=== PATIENT | male | born 1980 | race Caucasian/White ===

== ENCOUNTER 2017-05-27 03:47 | Emergency (ER) | payer MEDICAID, OTHER ==
[~2017-05-27] VITALS: Ht 172.7 cm; Wt 74.0 kg
[2017-05-27 03:50] VITALS: Ht 172.7 cm; Wt 74.0 kg
[2017-05-27] MEDS ORDERED: LIDOCAINE 2% VISC 15 ML CUP PO ONE (04:30)
--- NOTE | 2017-05-27 04:39 | ERD ---
ER Documentation Chief Complaint Date/Time DATE: 05/27/17 TIME: 04:30 Chief Complaint mouth pain when gurgled "skin astringent" 20cc did not swallow spit out HPI 36-year-old male presents here in emergency department for complaints of mouth pain after accidentally gargling with the skin astringent/cleanser tonight. Patient was able to ingest very small amount. Patient is complaining of pain and burning pain 4/10 scale, not better or worse with anything. Patient denies any shortness of breath or stridor. Patient denies any chest pain. Patient denies any abdominal pain. ROS All systems reviewed and are negative except as per history of present illness. Medications Home Meds Reported Medications [none] Unknown Strength No Conflict Check 05/27/17 Allergies Allergies: Coded Allergies: No Known Allergy (Unverified , 05/27/17) PMhx/Soc Medical and Surgical Hx: pt denies Medical Hx, pt denies Surgical Hx Hx Alcohol Use: No Hx Substance Use: No Hx Tobacco Use: Yes Smoking Status: Current every day smoker FmHx Family History: No coronary disease, No diabetes, No other Physical Exam Vitals Vital Signs Date Time Temp Pulse Resp B/P Pulse Ox O2 Delivery O2 Flow Rate FiO2 05/27/17 03:50 97.8 87 20 133/83 98 Physical Exam GENERAL: The patient is well developed and appropriate for usual state of health, in no apparent distress. HEENT: Atraumatic. Ears: Normal tympanic membrane, no erythema or bulging. No ear canal swelling. No ear discharge. Nose: normal nasal turbinates, no erythema or swelling. Normal nasal discharge. Throat: oropharynx erythematous. No tonsillar swelling or tonsillar exudates. No lymphadenopathy. CHEST: Clear to auscultation bilaterally. There are no rales, wheezes or rhonchi. HEART: Regular rate and rhythm. No murmurs, clicks, rubs or gallops. No S3 or S4. ABDOMEN: Soft, nontender and nondistended. Good bowel sounds. No rebound or guarding. No gross peritonitis. No gross organomegaly or masses. No White sign or McBurney point tenderness. BACK: No midline or flank tenderness. EXTREMITIES: Equal pulses bilaterally. There is no peripheral clubbing, cyanosis or edema. No focal swelling or erythema. Full range of motion. Grossly neurovascularly intact. NEURO: Alert and oriented. Cranial nerves 2-12 intact. Motor strength in all 4 extremities with 5/5 strength. Sensation grossly intact. Normal speech and gait. SKIN: There is no apparent rash or petechia. The skin is warm and dry. HEMATOLOGIC AND LYMPHATIC: There is no evidence of excessive bruising or lymphedema. No gross cervical, axillary, or inguinal lymphadenopathy. Results 24 hrs Current Medications Medications (Trade) Dose Ordered Sig/Neo Route PRN Reason Start Time Stop Time Status Last Admin Dose Admin Lidocaine (Xylocaine (Viscous)) 15 ml ONCE ONCE PO 05/27/17 04:30 05/27/17 04:31 Poison control was contacted, recommended symptomatic treatment at this time, recommended lidocaine oral for numbing and pain control. Procedures/MDM Medical decision making: Patient had a burning sensation in the mouth area most likely from irritation from the strong solution. No symptoms of any open wounds at this time. No lesions noted. No symptoms of respiratory distress. No symptoms of oral airway obstruction. No symptoms of severe ingestion. Patient was advised to follow-up with primary care doctor in 2-3 days for reevaluation of symptoms. Patient was advised to return to emergency department for any worsening symptoms. Patient will be given for pain, [place], as a follow-up with primary care doctor. Departure Diagnosis: Primary Impression: Exposure to chemical irritant Condition: Stable Patient Instructions: Chemical Burn, Skin REYMUNDO COLON NP May 27, 2017 04:38
[2017-05-27] MEDS ORDERED: HYDR-906 PO (04:43)
== END 2017-05-27 05:05 | disposition home or self-care (01) ==
LOC: FTE 03:47
DX: T49.2X1A Poisoning by local astringents and local detergents, accidental (unintentional), initial encounter (principal); F17.210 Nicotine dependence, cigarettes, uncomplicated
CPT/HCPCS: 99283